=== PATIENT | male | born 1970 | race Caucasian/White ===

== ENCOUNTER 2018-03-28 15:18 | Emergency (ER) | payer BC ==
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
[2018-03-28] MEDS ORDERED: TORAdol 30 mg Injection IM ONE (15:56)
[2018-03-28] MEDS ORDERED: DECADRON 10MG INJ. IM ONE (15:57)
[2018-03-28] MEDS ORDERED: TORAdol 30 mg Injection ONE (15:59)
[2018-03-28] MEDS ORDERED: DECADRON 10MG INJ. ONE (15:59)
[2018-03-28 16:21] VITALS: BP 130/73; PULSE 74; O2SAT 97
== END 2018-03-28 16:24 | disposition home or self-care (01) ==
LOC: ED 15:18
DX: M54.5 Low back pain (principal); M54.31 Sciatica, right side; M10.9 Gout, unspecified; X50.0XXA Overexertion from strenuous movement or load, initial encounter; X50.1XXA Overexertion from prolonged static or awkward postures, initial encounter; K21.9 Gastro-esophageal reflux disease without esophagitis; Z79.899 Other long term (current) drug therapy
CPT/HCPCS: 96372; 99284; J1100; J1885

== ENCOUNTER 2020-11-01 18:24 | Emergency (ER) | payer BC, OTHER ==
[2020-11-01 18:38] VITALS: BP 171/110; PULSE 113; O2SAT 99
--- NOTE | 2020-11-01 19:29 | ERPHSYRPT ---
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 Since then patient has been experiencing ongoing pain. Pain is at his left elbow more than left shoulder. Pain worse with movement and palpation. Pain described as an ache that is localized. Patient states that pain precludes him from flexing his elbow. Patient took Tylenol at noon today. No other injuries reported. No associated numbness tingling or weakness. No neck pain. No chest pain or shortness of breath. No nausea vomiting or diaphoresis. Symptoms are mild to moderate in intensity. Patient is otherwise healthy. He voices no other complaints or concerns at this time. Occurred: this afternoon Method of Injury: other (Lifting a pipe) Quality: aching Severity of Pain-Max: moderate Severity of Pain-Current: mild Extremities Pain Location: elbow: left Modifying Factors: Improves With: movement, pain medication Associated Symptoms: none Allergies/Adverse Reactions: No Known Drug Allergies Allergy (Verified 11/01/20 18:38) Home Medications: Esomeprazole Magnesium [Nexium] 20 mg PO DAILY 08/07/14 [History] Allopurinol 100 mg [Zyloprim 100 mg] 100 mg PO DAILY 03/28/18 [History] Amlodipine Besylate 5 mg [Norvasc 5 mg] 5 mg PO DAILY 11/01/20 [History] Hx Tetanus, Diphtheria Vaccination/Date Given: No Hx Influenza Vaccination/Date Given: No Hx Pneumococcal Vaccination/Date Given: No Travel Risk - International Travel Have you traveled outside of the country in past 3 weeks: No - Coronavirus Screening Are you exhibiting any of the following symptoms?: No Close contact with a COVID-19 positive Pt in past 14-21 Days: No - Vaccine Status Have you recieved a Covid-19 vaccination: No - Review of Systems Constitutional: No Symptoms, No Fever, No Chills Eyes: No Symptoms Ears, Nose, & Throat: No Symptoms Respiratory: No Symptoms, No Cough, No Dyspnea Cardiac: No Symptoms, No Chest Pain, No Edema, No Syncope Abdominal/Gastrointestinal: No Symptoms, No Abdominal Pain, No Nausea, No Vomiting, No Diarrhea Genitourinary Symptoms: No Symptoms, No Dysuria Musculoskeletal: No Symptoms, No Back Pain, No Neck Pain Skin: No Symptoms, No Rash Neurological: No Symptoms, No Dizziness, No Focal Weakness, No Sensory Changes Psychological: No Symptoms Endocrine: No Symptoms Hematologic/Lymphatic: No Symptoms Immunological/Allergic: No Symptoms All Other Systems: Reviewed and Negative - Past Medical History Pertinent Past Medical History: Yes Neurological History: No Pertinent History ENT History: No Pertinent History Cardiac History: No Pertinent History Respiratory History: No Pertinent History Endocrine Medical History: No Pertinent History Musculoskeletal History: No Pertinent History GI Medical History: GERD History: No Pertinent History Psycho-Social History: No Pertinent History Male Reproductive Disorders: No Pertinent History Other Medical History: GOUT - Past Surgical History Past Surgical History: No Neuro Surgical History: No Pertinent History Cardiac: No Pertinent History Respiratory: No Pertinent History Gastrointestinal: No Pertinent History Genitourinary: No Pertinent History Musculoskeletal: No Pertinent History Male Surgical History: No Pertinent History - Social History Smoking Status: Former smoker Exposure to second hand smoke: Yes Drug Use: marijuana Patient Lives Alone: No - Nursing Vital Signs Nursing Vital Signs: Initial Vital Signs Temperature 98.1 F 11/01/20 18:31 Pulse Rate 113 H 11/01/20 18:31 Blood Pressure 171/110 11/01/20 18:31 O2 Sat by Pulse Oximetry 99 11/01/20 18:31 Pain Scale Pain Intensity 7 - Physical Exam General Appearance: no apparent distress, alert Eyes, Ears, Nose, Throat Exam: TMs normal, pharynx normal, moist mucous membranes Neck Exam: normal inspection, non-tender, supple Cardiovascular/Respiratory Exam: chest non-tender, normal breath sounds, regular rate/rhythm, heart sounds normal, no respiratory distress Abdominal Exam: non-tender, soft, no organomegaly, no hernia, No guarding Back Exam: normal inspection, No vertebral tenderness Shoulder Exam: normal inspection, no evidence of injury, pain (Slight tenderness over the left AC joint. No separation observed on exam.) Elbow/Forearm Exam: pain (Tenderness palpation at the insertion of the left biceps tendon. The tricep appears to be retracted up closer to the shoulder. The extremity is neurovascular intact distally. Compartments are soft. Cap refill less than 2 seconds. Physical exam suggestive of torn bicep tendon at its insertion si) Wrist Exam: normal inspection, non-tender, no evidence of injury, normal ROM Hand Exam: normal inspection, non-tender, no evidence of injury, normal ROM Neuro/Tendon Exam: normal sensation, normal motor functions, tendon function deficit (Left bicep tendon and insertion site appears to be disrupted.) Mental Status Exam: alert, oriented x 3, cooperative Skin Exam: normal color, warm, dry SpO2 Interpretation: normal SpO2: 99 O2 Delivery: Room Air - Course Nursing assessment & vital signs reviewed: Yes - Radiology Exams Humerus X-ray Interpretation: Interpreted by me (No fracture or dislocations. No soft tissue abnormalities. The biceps tendon appears to be pulled closer to the left shoulder versus the contralateral side clinically and radiologically.) Ordered Tests: Active Orders 24 hr Category Date Time Status HUMERUS Stat Exams 11/01/20 19:17 Taken Medication Summary Generic Name Dose Route Start Last Admin Trade Name Avinashq PRN Reason Stop Dose Admin Ketorolac Tromethamine 30 mg 11/01/20 19:38 Toradol 30 Mg Injection IM 11/01/20 19:39 STAT ONE - Progress Progress: improved Progress Note: Patient reassessed. He feels well at rest. Toradol administered. Evaluation and radiograph finding suggestive of left bicep tendon rupture at its insertion site. Extremities neurovascular intact distally. Compartments are soft. Cap refill less than 2 seconds. We administered Toradol IM 30 mg for pain control. Pain is comfortable. Patient received the left upper extremity sling for comfort as well. Patient will be referred to the orthopedic clinic tomorrow morning. Patient advised to restrain from any sort of lifting or activities inv olving the left upper extremity until cleared otherwise by his orthopedic doctor. Patient voices no other complaints concerns at this time. He will follow-up as discussed. Portions of this note were created with voice recognition technology. There may be grammatical, spelling, punctuation or sound alike errors 11/01/20 19:46 Counseled pt/family regarding: diagnosis, need for follow-up, rad results - Departure Departure Disposition: Home Clinical Impression: Torn biceps tendon Condition: Stable Critical Care Time: No Referrals: MICAH THURMAN MD [Primary Care Provider] - Additional Instructions: Discharge/Care Plan MERCEDES XAVIER was seen on 11/01/20 in the Emergency Room. The patient was counseled regarding Diagnosis,Lab results, Imaging studies, need for follow up and when to return to the Emergency Room. Prescriptions given: Discharge Note I have spoken with the patient and/or caregivers. I have explained the patient's condition, diagnosis and treatment plan based on the information available to me at this time. I have answered the patient's and/or caregiver's questions and addressed any concerns. The patient and/or caregivers have as good understanding of the patient's diagnosis, condition and treatment plan as can be expected at this point. The vital signs have been stable. The patient's condition is stable and appropriate for discharge from the emergency department. The patient will pursue further outpatient evaluation with the primary care carissa alonso or other designated or consulting physician as outlined in the discharge instructions. The patient and/or caregivers are agreeable to this plan of care and follow-up instructions have been explained in detail. The patient and/or caregivers have received these instruction. The patient/and or caregivers are aware that any significant change in condition or worsening of symptoms should prompt an immediate return to this or the closest emergency department or call 911.
[2020-11-01] MEDS ORDERED: TORAdol 30 mg Injection IM ONE (19:38)
[2020-11-01] MEDS ORDERED: TORAdol 30 mg Injection ONE (19:49)
--- NOTE | 2020-11-03 17:40 | XRAY ---
Exam: 2 views of the left humerus from 11/01/2020. Comparison: None. Indication: Left arm injury; pain within distal humerus/elbow. Pain began after hearing a "pop" while shoveling. Has difficulty moving arm. Findings: AP internal rotation and AP external rotation images reveal no acute fracture. I note a small 6 mm oval-shaped calcification adjacent to the lateral epicondyle of the distal left humerus. This may reflect hydroxyapatite deposition disease, or calcific tendinitis. A small osteochondroma is not excluded with certainty. The left elbow joint space appears unremarkable. Incidentally, on the AP internal rotation view, the patient's bicep has an unusual appearance anterior to the humerus. There is clinical concern that the patient may have torn his biceps muscle. MRI may be helpful for further evaluation in this regard. Impression: 1. No acute fracture of the left humerus is seen. 2. Unusual appearance of biceps muscle anterior to the left humerus on the AP internal rotation radiograph. There is clinical concern of a torn biceps muscle. Consider further evaluation with MRI of the left arm. 3. Small oval calcification at lateral margin of the lateral epicondyle of the distal left humerus. This may reflect hydroxyapatite deposition disease, or chronic calcific tendinitis. A small osteochondroma cannot be excluded, as this calcification does not project off the distal left humerus on this view.
== END 2020-11-01 20:12 | disposition home or self-care (01) ==
LOC: ED 18:24
DX: S46.212A Strain of muscle, fascia and tendon of other parts of biceps, left arm, initial encounter (principal); X50.0XXA Overexertion from strenuous movement or load, initial encounter; Z79.899 Other long term (current) drug therapy
CPT/HCPCS: 73060; 96372; 99284; J1885

== ENCOUNTER 2022-08-20 12:31 | Day surgery (SDC) | payer BC ==
[2022-08-20] MEDS ORDERED: LIDOCAINE HCL 2% 100 MG/5 ML IJ ONE (12:32)
[2022-08-20] MEDS ORDERED: DIPRIVAN 200 MG/20 ML IV ONE (14:26)
[2022-08-20] MEDS ORDERED: Lactated Ringers 1,000 ML IV ONE (14:43)
--- NOTE | 2022-08-20 18:33 | XRAY ---
Indication: Right C3-C5 MBB. Intraoperative fluoroscopy provided for 24 seconds. 2 digital spot image submitted for interpretation demonstrates posterior needle tips projecting over the expected right C3-C5 nerve roots. Correlate with intraoperative findings/report.
--- NOTE | 2022-08-20 18:56 | XRAY ---
24 seconds of fluoroscopy was used in surgery for a right C3-C5 MBB.
== END 2022-08-20 14:57 | disposition home or self-care (01) ==
LOC: SDC-PAIN 12:31
PROVIDERS: ATTEND Psychiatry & Neurology Pain Medicine
DX: M47.812 Spondylosis without myelopathy or radiculopathy, cervical region (principal); Z79.899 Other long term (current) drug therapy
CPT/HCPCS: 64490; 64491; 72040; 77002; J2704

== ENCOUNTER 2022-10-02 08:56 | Day surgery (SDC) | payer BC ==
[2022-10-02] MEDS ORDERED: BUPIVACAINE 0.5% VIAL IJ ONE (08:57)
[2022-10-02] MEDS ORDERED: DIPRIVAN 200 MG/20 ML IV ONE (09:58)
[2022-10-02] MEDS ORDERED: Versed 2 MG/2 ML Injection ONE (09:58)
[2022-10-02] MEDS ORDERED: Lactated Ringers 1,000 ML IV ONE (10:09)
--- NOTE | 2022-10-02 10:36 | XRAY ---
Indication: Right C3-C5 MBB. Intraoperative fluoroscopy provided for 22 seconds. 2 digital spot image submitted for interpretation demonstrates posterior needle tips projecting over the expected right C3-C5 nerve roots. Correlate with intraoperative findings/report.
--- NOTE | 2022-10-02 10:53 | XRAY ---
22 seconds of fluoroscopy was used in surgery for a right C3-C5 MBB.
== END 2022-10-02 10:30 | disposition home or self-care (01) ==
LOC: SDC-PAIN 08:56
PROVIDERS: ATTEND Psychiatry & Neurology Pain Medicine
DX: M47.812 Spondylosis without myelopathy or radiculopathy, cervical region (principal); Z79.899 Other long term (current) drug therapy
CPT/HCPCS: 64490; 64491; 72040; 77002; J2250; J2704

== ENCOUNTER 2023-01-30 06:19 | Day surgery (SDC) | payer BC ==
[2023-01-30 07:25] VITALS: RESP 18
[2023-01-30] MEDS ORDERED: Lactated Ringers 1,000 ML IV ONE (07:29)
[2023-01-30] MEDS ORDERED: Lactated Ringers 1,000 ML IV SCH (08:00)
[2023-01-30] MEDS ORDERED: DIPRIVAN 200 MG/20 ML IV ONE (08:43)
[2023-01-30] MEDS ORDERED: Versed 2 MG/2 ML Injection ONE (08:44)
--- NOTE | 2023-01-30 09:08 | OP ---
SURGERY DATE/TIME: 01/30/2023 0849 PREOPERATIVE DIAGNOSIS: Screening exam. POSTOPERATIVE DIAGNOSIS: Normal colon. PROCEDURE: Colonoscopy. SURGEON: Dr. Jhaveri. ANESTHESIA: Medications given by anesthesia department. HISTORY: The patient is a 52-year-old white male patient presenting now for screening colonoscopy. The patient was appraised of the risks of the procedure including the risk of perforation, phlebitis, untoward reaction to medication, bleeding and missed lesions. The patient verbalized his understanding and desired to have the procedure performed. DESCRIPTION OF PROCEDURE: The patient was given the medications by the anesthesia department. He had continuous pulse oximetry, ECG monitoring and intermittent blood pressure monitoring during the examination. He was placed in the left lateral decubitus position. A digital rectal examination was performed and revealed normal anal sphincter tone, no masses and a normal prostate. The flexible Olympus pediatric colonoscope was used to intubate the rectum. A view of the colon was developed sequentially to the cecum. Upon insertion and withdrawal, including a retroflex view in the rectum, no mucosal lesions were encountered. The scope was removed from the patient who tolerated the procedure well and was sent back to OP recovery in good condition. The prep was noted to be fair.
[2023-01-30 09:27] VITALS: O2SAT 99
[2023-01-30 09:42] VITALS: BP 129/90; PULSE 66; TEMP 97.6
== END 2023-01-30 09:50 | disposition home or self-care (01) ==
LOC: SDC 06:19
PROVIDERS: ATTEND Family Medicine
DX: Z12.11 Encounter for screening for malignant neoplasm of colon (principal)
CPT/HCPCS: J2250; J2704